=== PATIENT | female | born 1990 | race Caucasian/White ===

== ENCOUNTER 2022-05-24 17:59 | Emergency (ER) | payer SELFPAY ==
[2022-05-24 18:07] VITALS: BP 134/80; PULSE 86; RESP 18; TEMP 37.2; O2SAT 100; BMI 28.7
--- NOTE | 2022-05-24 18:10 | ECG_ITS ---
Test Reason : DIZZINESS Blood Pressure : / mmHG Vent. Rate : 077 BPM Atrial Rate : 077 BPM P-R Int : 130 ms QRS Dur : 078 ms QT Int : 382 ms P-R-T Axes : 070 039 041 degrees QTc Int : 432 ms Normal sinus rhythm Nonspecific ST abnormality Abnormal ECG No previous ECGs available Referred By: Generic ED Physician Electronically Signed By:MELANY SHANKAR
== END 2022-05-24 21:58 | disposition left against medical advice (07) ==
PROVIDERS: Emergency Provider Emergency Medicine
DX: R42 Dizziness and giddiness (principal); R51.9 Headache, unspecified
CPT/HCPCS: 93005; 99281; 99282; 99283